=== PATIENT | male | born 1945 | race Caucasian/White ===

== ENCOUNTER → 2023-05-30 10:51 | Outpatient (REF) | payer MEDICARE, OTHER, SELFPAY ==
[2023-05-30 12:01] LABS: Blood Urea Nitrogen 19 mg/dl (9-20); Calcium 9.8 mg/dl (8.4-10.2); Carbon Dioxide 24 mmol/L (22-30); Chloride 102 mmol/L (98-107); Glucose 100 mg/dl (70-99); Potassium 4.5 mmol/L (3.5-5.1); Sodium 136 mmol/L (135-145); eGFR > 60.00
== END ==
LOC: REG 10:51
PROVIDERS: ATTENDING PHYSICIAN Family Medicine
DX: I10 Essential (primary) hypertension (principal); Z95.1 Presence of aortocoronary bypass graft; I36.1 Nonrheumatic tricuspid (valve) insufficiency
CPT/HCPCS: 36415; 80048

== ENCOUNTER → 2023-08-21 08:13 | Outpatient (REF) | payer MEDICARE, OTHER, SELFPAY | LOC: DHCBC MAIN 08:13 | PROVIDERS: ATTENDING PHYSICIAN Internal Medicine Cardiovascular Disease; FAMILY PHYSICIAN Family Medicine | DX: I25.10 Atherosclerotic heart disease of native coronary artery without angina pectoris (principal); I51.7 Cardiomegaly; I07.1 Rheumatic tricuspid insufficiency | CPT/HCPCS: 93306 ==

== ENCOUNTER → 2023-08-28 13:36 | Outpatient (REF) | payer MEDICARE, OTHER, SELFPAY ==
[2023-08-28 14:59] LABS: Blood Urea Nitrogen 17 mg/dl (9-20); Calcium 9.7 mg/dl (8.4-10.2); Carbon Dioxide 27 mmol/L (22-30); Chloride 106 mmol/L (98-107); Glucose 88 mg/dl (70-99); Potassium 4.9 mmol/L (3.5-5.1); Sodium 137 mmol/L (135-145); eGFR > 60.00
== END ==
LOC: REG 13:36
PROVIDERS: ATTENDING PHYSICIAN Family Medicine
DX: I10 Essential (primary) hypertension (principal); Z95.1 Presence of aortocoronary bypass graft; I36.1 Nonrheumatic tricuspid (valve) insufficiency
CPT/HCPCS: 36415; 80048

== ENCOUNTER → 2023-10-03 08:11 | Outpatient (REF) | payer MEDICARE, OTHER, SELFPAY | LOC: RCS 08:11 | PROVIDERS: ATTENDING PHYSICIAN Internal Medicine Cardiovascular Disease; FAMILY PHYSICIAN Family Medicine | DX: I10 Essential (primary) hypertension (principal); I25.10 Atherosclerotic heart disease of native coronary artery without angina pectoris; I45.10 Unspecified right bundle-branch block; I51.7 Cardiomegaly; I07.1 Rheumatic tricuspid insufficiency | CPT/HCPCS: 93017; 93350 ==

== ENCOUNTER 2023-10-19 07:23 | Day surgery (SDC) | payer MEDICARE, OTHER, SELFPAY ==
[2023-10-13 08:42] VITALS: BMI 23.9
[2023-10-19] VITALS (11 sets, daily range): BP systolic 96–142; BP diastolic 61–101; BMI 21.5
[2023-10-19] MEDS: LOW STRENGTH ASPIRIN 81 MG PO (08:16)
--- NOTE | 2023-10-19 09:18 | ITS.CL.CATH ---
Communications Specialist - Catheterization
Cardiac Catheterization
Procedure Report:
CARDIAC CATHETERIZATION REPORT
Date of Procedure: 10/19/2023
Referring: Yina Pimentel MD
Indication: Exertional dyspnea with remote CABG and abnormal stress test
HEMODYNAMIC DATA
AO: 132/72
LV: 132/15
LEFT VENTRICULOGRAPHY: Focal area of borderline inferoapical hypokinesis with otherwise normal segmental wall motion with EF 56%
CORONARY ANGIOGRAPHY
Dominance: Right
Left Main: Normal
LAD: Widely patent proximal LAD stent with no restenosis (DAVE 2016). The mid LAD is occluded. The mid and distal LAD fill via a widely patent left internal mammary artery graft with excellent runoff to the apex. There is no significant disease
distal to the BRANDO graft touchdown site in the LAD. D1 is a small caliber small distribution vessel with diffuse moderate disease. D2 is a small caliber moderate distribution vessel 40% mid stenosis. The appearance of the LAD is similar to the
prior study from 2016.
Circumflex: The circumflex gives rise to a small caliber large distribution OM1 and a small caliber medium distribution OM 2 before terminating with a small left posterolateral branch. There is 50-60% mid circumflex stenosis proximal to the takeoff
of OM 2. OM1 has 60% ostial stenosis and is occluded in the midportion with well-developed bridging collaterals supplying the distal OM1. OM 2 has 50-60% mid stenosis and fills antegrade and also via a patent right internal mammary artery graft.
Overall, the appearance of the circumflex is unchanged from the 2016 study
RCA: The RCA was found to be occluded just distal to its origin in 2016. The sequential vein graft to the RPDA and RPL is patent and there is diffuse mild disease in both target branches. The appearance of the RCA is unchanged compared with the
prior study
Bypass grafts:
1. The left internal mammary graft to the LAD is widely patent with excellent runoff
2. The right internal mammary graft was imaged nonselectively and is patent with runoff into the OM2 branch of the circumflex
3. The sequential vein graft to the RPDA and RPL remains widely patent with excellent runoff
4. The vein graft to the diagonal branch was shown to be occluded on the prior study and was not injected
5. The radial artery graft to the first obtuse marginal branch of the circumflex was shown to be occluded on the prior study and was not injected
Closure Device: 6 [place] Angio-Seal RFA
Radiation (mGy): 203
DAP (cm2.Gy): 15.9
Fluoroscopy time: 7.5 minutes
CONCLUSIONS
1: Focal area of borderline inferoapical hypokinesis with EF 56%-the appearance of the left ventricle is unchanged compared with the prior study from 2016
2: Multivessel CAD with patent LOWERY-LAD, MEDHAT-OM 2, and XOU-JUEG-SOG bypass grafts. The anatomy is quite similar to the prior study from 2016.
3. Continue medical therapy and risk factor modification efforts
Copy to: Yina Pimentel MD, Rodo Dominguez MD
Massimo Adams MD, [facility], [facility]
== END 2023-10-19 13:05 | disposition home or self-care (01) ==
LOC: CATH 07:23
PROVIDERS: ATTENDING PHYSICIAN Internal Medicine Cardiovascular Disease; FAMILY PHYSICIAN Family Medicine; OTHER PHYSICIAN Internal Medicine Cardiovascular Disease
DX: I25.10 Atherosclerotic heart disease of native coronary artery without angina pectoris (principal); I25.810 Atherosclerosis of coronary artery bypass graft(s) without angina pectoris; R06.09 Other forms of dyspnea; R94.39 Abnormal result of other cardiovascular function study; Z95.5 Presence of coronary angioplasty implant and graft; E78.5 Hyperlipidemia, unspecified; I10 Essential (primary) hypertension; I07.1 Rheumatic tricuspid insufficiency; M48.00 Spinal stenosis, site unspecified; Z79.82 Long term (current) use of aspirin; Z79.899 Other long term (current) drug therapy; Z82.3 Family history of stroke
CPT/HCPCS: 93459; C1760; C1894; Q9967

== ENCOUNTER → 2023-11-08 15:27 | Outpatient (REF) | payer MEDICARE, OTHER, SELFPAY ==
[2023-11-08 16:06] LABS: Urine Albumin Negative (Neg - Trace); Urine Bilirubin Negative (Negative); Urine Character Clear (Clear); Urine Color Yellow; Urine Glucose Negative (Negative); Urine Ketone Negative (Negative); Urine Leukocyte Trace (Negative); Urine Nitrite Negative (Negative); Urine Occult Blood Negative (Negative); Urine Specific Gravity 1.025 (<1.030); Urine Urobilinogen Negative (Neg - 1+)
[2023-11-08 16:19] LABS: Urine Bacteria Few (Negative); Urine Red Blood Cell 0-2 /HPF (0-2); Urine White Cell 0-2 /HPF (0-5)
[2023-11-08 16:52] LABS: PSA, Total - Diagnostic 1.47 ng/ml (0.0-4.0)
== END ==
LOC: RAD 15:27
PROVIDERS: ATTENDING PHYSICIAN Specialist; FAMILY PHYSICIAN Family Medicine
DX: R35.0 Frequency of micturition (principal)
CPT/HCPCS: 36415; 81003; 81015; 84153

== ENCOUNTER → 2023-11-29 15:44 | Outpatient (REF) | payer MEDICARE, OTHER, SELFPAY ==
[2023-11-29 16:28] LABS: Blood Urea Nitrogen 21 mg/dl (9-20); Carbon Dioxide 25 mmol/L (22-30); Chloride 104 mmol/L (98-107); Glucose 93 mg/dl (70-99); Potassium 4.4 mmol/L (3.5-5.1); Sodium 136 mmol/L (135-145); eGFR > 60.00
== END ==
LOC: REG 15:44
PROVIDERS: ATTENDING PHYSICIAN Family Medicine
DX: I10 Essential (primary) hypertension (principal); Z95.1 Presence of aortocoronary bypass graft; I36.1 Nonrheumatic tricuspid (valve) insufficiency
CPT/HCPCS: 36415; 80048

== ENCOUNTER → 2024-01-31 06:34 | Outpatient (REF) | payer MEDICARE, OTHER, SELFPAY ==
[2024-01-31 08:19] LABS: HDL Cholesterol 80 mg/dl; LDL Cholesterol, Calculated 43 mg/dl; Total Cholesterol 148 mg/dl (50-199); Triglyceride 129 mg/dl (10-149); Very Low Density Lipoprotein 25 mg/dl (0-30)
== END ==
LOC: REG 06:34
PROVIDERS: ATTENDING PHYSICIAN Internal Medicine Cardiovascular Disease; FAMILY PHYSICIAN Family Medicine
DX: I25.10 Atherosclerotic heart disease of native coronary artery without angina pectoris (principal)
CPT/HCPCS: 36415; 80061

== ENCOUNTER → 2024-02-27 06:28 | Outpatient (REF) | payer MEDICARE, OTHER, SELFPAY ==
[2024-02-27 08:15] LABS: % Basophils 1.9 % (0-2); % Eosinophils 5.5 % (0-6); % Immature Granulocytes 0.2 % (0-0.5); % Lymphocytes 35.3 % (20.5-51.1); % Monocytes 17.2 % (1.7-9.3); % Neutrophils 39.9 % (42.2-75.2); Absolute Basophils 0.1 10^3/uL (0-0.2); Absolute Eosinophils 0.3 10^3/uL (0-0.7); Absolute Lymphocytes 1.7 10^3/uL (1.2-3.4); Absolute Monocytes 0.8 10^3/uL (0.1-0.6); Absolute Neutrophils 1.9 10^3/uL (1.4-6.5); Hematocrit 45.9 % (39.0-52.0); Hemoglobin 15.9 g/dL (13.0-18.0); Mean Corp Hgb Conc. 34.6 g/dL (33.0-37.0); Mean Corpuscular Volume 95.2 fL (80.0-94.0); Mean Platelet Volume 10.4 fL (7.4-10.4); Nucleated Red Blood Cells % 0 % (-); Platelet Count 155 10^3/uL (130-400); Red Blood Cell Count 4.82 10^6/uL (4.70-6.10); Red Cell Dist. Width 12.7 % (11.5-14.5); White Blood Cell Count 4.7 10^3/uL (4.8-10.8)
[2024-02-27 08:28] LABS: Blood Urea Nitrogen 18 mg/dl (9-20); Calcium 9.6 mg/dl (8.4-10.2); Carbon Dioxide 27 mmol/L (22-30); Chloride 104 mmol/L (98-107); Glucose 98 mg/dl (70-99); Potassium 4.3 mmol/L (3.5-5.1); Sodium 141 mmol/L (135-145); eGFR > 60.00
== END ==
LOC: REG 06:28
PROVIDERS: ATTENDING PHYSICIAN Family Medicine
DX: I10 Essential (primary) hypertension (principal); Z95.1 Presence of aortocoronary bypass graft; I36.1 Nonrheumatic tricuspid (valve) insufficiency; R21 Rash and other nonspecific skin eruption
CPT/HCPCS: 36415; 80048; 85025

== ENCOUNTER → 2024-08-14 11:20 | Outpatient (REF) | payer MEDICARE, OTHER, SELFPAY ==
[2024-08-14 13:18] LABS: Albumin 4.6 g/dl (3.5-5.0); Blood Urea Nitrogen 24 mg/dl (9-20); Calcium 10.6 mg/dl (8.4-10.2); Carbon Dioxide 26 mmol/L (22-30); Chloride 103 mmol/L (98-107); Glucose 107 mg/dl (70-99); Potassium 5.2 mmol/L (3.5-5.1); Sodium 140 mmol/L (135-145); eGFR > 60.00
== END ==
LOC: REG 11:20
PROVIDERS: ATTENDING PHYSICIAN Internal Medicine Cardiovascular Disease; FAMILY PHYSICIAN Family Medicine
DX: I25.10 Atherosclerotic heart disease of native coronary artery without angina pectoris (principal); I10 Essential (primary) hypertension; I51.7 Cardiomegaly; I07.1 Rheumatic tricuspid insufficiency
CPT/HCPCS: 36415; 80069

== ENCOUNTER → 2024-08-20 06:37 | Outpatient (REF) | payer MEDICARE, OTHER, SELFPAY ==
[2024-08-20 07:39] LABS: Albumin 4.2 g/dl (3.5-5.0); Blood Urea Nitrogen 18 mg/dl (9-20); Calcium 9.6 mg/dl (8.4-10.2); Carbon Dioxide 26 mmol/L (22-30); Chloride 107 mmol/L (98-107); Glucose 108 mg/dl (70-99); Phosphorus 3.5 mg/dl (2.5-4.5); Potassium 4.6 mmol/L (3.5-5.1); Sodium 143 mmol/L (135-145); eGFR > 60.00
== END ==
LOC: REG 06:37
PROVIDERS: ATTENDING PHYSICIAN Internal Medicine Cardiovascular Disease; FAMILY PHYSICIAN Family Medicine
DX: I25.10 Atherosclerotic heart disease of native coronary artery without angina pectoris (principal); I10 Essential (primary) hypertension; I51.7 Cardiomegaly; I07.1 Rheumatic tricuspid insufficiency
CPT/HCPCS: 36415; 80069

== ENCOUNTER → 2024-08-28 08:15 | Outpatient (REF) | payer MEDICARE, OTHER, SELFPAY | LOC: HWRCS 08:15 | PROVIDERS: ATTENDING PHYSICIAN Internal Medicine Cardiovascular Disease; FAMILY PHYSICIAN Family Medicine | DX: I25.10 Atherosclerotic heart disease of native coronary artery without angina pectoris (principal); I51.7 Cardiomegaly; I07.1 Rheumatic tricuspid insufficiency | CPT/HCPCS: 93306 ==

== ENCOUNTER → 2025-01-06 08:54 | Outpatient (REF) | payer MEDICARE, OTHER, SELFPAY | LOC: RAD 08:54 | PROVIDERS: ATTENDING PHYSICIAN Family Medicine | DX: M25.511 Pain in right shoulder (principal); G89.29 Other chronic pain; M54.50 Low back pain, unspecified | CPT/HCPCS: 72072; 72110; 73030 ==

== ENCOUNTER → 2025-01-13 15:08 | Outpatient (REF) | payer MEDICARE, OTHER, SELFPAY | LOC: PAVMRI 15:08 | PROVIDERS: ATTENDING PHYSICIAN Family Medicine | DX: M25.511 Pain in right shoulder (principal) | CPT/HCPCS: 73221 ==

== ENCOUNTER → 2025-01-15 09:41 | Outpatient (REF) | payer MEDICARE, OTHER, SELFPAY | LOC: PAVMRI 09:41 | PROVIDERS: ATTENDING PHYSICIAN Family Medicine | DX: M48.07 Spinal stenosis, lumbosacral region (principal); M47.816 Spondylosis without myelopathy or radiculopathy, lumbar region; M54.50 Low back pain, unspecified | CPT/HCPCS: 72158; A9575 ==

== ENCOUNTER → 2025-02-12 06:32 | Outpatient (REF) | payer MEDICARE, OTHER, SELFPAY ==
[2025-02-12 07:46] LABS: Albumin 4.8 g/dl (3.5-5.0); Blood Urea Nitrogen 21 mg/dl (9-20); Calcium 9.6 mg/dl (8.4-10.2); Carbon Dioxide 25 mmol/L (22-30); Chloride 106 mmol/L (98-107); Glucose 106 mg/dl (70-99); Potassium 4.7 mmol/L (3.5-5.1); Sodium 140 mmol/L (135-145); eGFR > 60.00
== END ==
LOC: REG 06:32
PROVIDERS: ATTENDING PHYSICIAN Internal Medicine Cardiovascular Disease; FAMILY PHYSICIAN Family Medicine
DX: I25.10 Atherosclerotic heart disease of native coronary artery without angina pectoris (principal); I10 Essential (primary) hypertension; I51.7 Cardiomegaly; I07.1 Rheumatic tricuspid insufficiency
CPT/HCPCS: 36415; 80069

== ENCOUNTER → 2025-02-20 11:30 | Outpatient (REF) | payer MEDICARE, OTHER, SELFPAY | LOC: RCS 11:30 | PROVIDERS: ATTENDING PHYSICIAN Internal Medicine Cardiovascular Disease; FAMILY PHYSICIAN Family Medicine | DX: I48.3 Typical atrial flutter (principal) | CPT/HCPCS: 93225; 93226 ==

== ENCOUNTER 2025-02-25 07:00 | Day surgery (SDC) | payer MEDICARE, OTHER, SELFPAY ==
[2025-02-25 08:02] VITALS: BMI 23.2
== END 2025-02-25 10:12 | disposition home or self-care (01) ==
LOC: CATH 07:00
PROVIDERS: ATTENDING PHYSICIAN Internal Medicine Cardiovascular Disease; FAMILY PHYSICIAN Family Medicine; OTHER PHYSICIAN Internal Medicine Cardiovascular Disease
DX: I48.91 Unspecified atrial fibrillation (principal); I48.92 Unspecified atrial flutter; Z23 Encounter for immunization; I10 Essential (primary) hypertension; E78.00 Pure hypercholesterolemia, unspecified; Z95.1 Presence of aortocoronary bypass graft; I25.10 Atherosclerotic heart disease of native coronary artery without angina pectoris; Z79.01 Long term (current) use of anticoagulants; Z79.899 Other long term (current) drug therapy; I08.3 Combined rheumatic disorders of mitral, aortic and tricuspid valves
CPT/HCPCS: 93312; 93320; 93325; 92960; 93005

== ENCOUNTER 2025-03-21 07:54 | Outpatient (RCR) | payer MEDICARE, OTHER, SELFPAY | END 2025-03-21 23:59 | disposition home or self-care (01) | LOC: RPT 07:54 | PROVIDERS: ATTENDING PHYSICIAN Family Medicine | DX: M47.816 Spondylosis without myelopathy or radiculopathy, lumbar region (principal); Z73.6 Limitation of activities due to disability; Z98.1 Arthrodesis status | CPT/HCPCS: 97110; 97162 ==

== ENCOUNTER 2025-04-07 07:07 | Outpatient (RCR) | payer MEDICARE, OTHER, SELFPAY | END 2025-04-07 10:06 | disposition home or self-care (01) | LOC: RPT 07:07 | PROVIDERS: ATTENDING PHYSICIAN Family Medicine | DX: M47.816 Spondylosis without myelopathy or radiculopathy, lumbar region (principal); Z73.6 Limitation of activities due to disability; Z98.1 Arthrodesis status | CPT/HCPCS: 97110 ==